=== PATIENT | female | born 1970 | race Two or more races ===

== ENCOUNTER 2016-11-30 11:43 | Emergency (ER) | payer OTHER ==
--- NOTE | 2016-11-30 13:47 | US ---
PELVIC ULTRASOUND HISTORY: Retained IUD. Transabdominal and transvaginal pelvic sonography performed. TRANSABDOMINAL IMAGING UTERINE DIMENSIONS: 7.6 x 4.1 x 4.8 cm. BLADDER: No abnormal filling defect. TRANSVAGINAL IMAGING: ENDOMETRIAL THICKNESS: 5 mm. Shadowing intrauterine device is identified at the lower uterine segment, near the internal cervical os. FOCAL UTERINE LESIONS: Hypoechoic focus at the left anterior fundal region, 2.9 x 2.5 x 2.2 cm, probable leiomyoma. Nabothian cyst formation is noted. RIGHT OVARY: 2.3 x 1.2 x 1.6 cm for a volume of 2.3 cc. LEFT OVARY: 1.6 x 1.6 x 1.3 cm for volume of 1.7 cc. OVARIAN BLOOD FLOW: Documented bilaterally. DOMINANT ADNEXAL LESIONS: No dominant lesion noted. FREE FLUID: None. IMPRESSION: Intrauterine device identified at the lower uterine segment. No dominant adnexal lesion, endometrial thickening, or free fluid. Findings discussed with Dr. Alegre of the Emergency Medicine clinical service on 11/30/16 at 1343 hours.
[2016-11-30 14:18] LABS: ABSOLUTE NEUTROPHIL COUNT 6.8 K/mm3 (1.8-7.7); BASO % 0.4 % (0.2-1.0); EOS # 0.2 (0.0-0.5); EOS % 1.4 % (0.9-2.9); HEMATOCRIT 43.5 % (37.0-47.0); IMM NEUT # 0.1 K/mm3 (0-0.2); IMM NEUT% 0.6 % (0-1); LYMPH # 3.2 (1.0-4.8); LYMPH % 29.5 % (15-45); MEAN CELL VOLUME 84.3 fl (81.0-99.0); MEAN CORPUSCULAR HEMOGLOBIN 27.1 pg (27.0-31.0); MEAN CORPUSCULAR HGB CONC 32.2 g/dl (33.0-37.0); MONO # 0.5 (0.0-0.8); MONO % 4.3 % (4-12); NEUT % 63.8 % (43-75); PLATELET COUNT 280 K/mm3 (130-400); RED CELL DISTRIBUTION WIDTH 12.8 % (11.5-14.5)
[2016-11-30] MEDS ORDERED: KETOROLAC TROMETHAMINE 30 MG/ML 1 ML VIAL ONE (14:27)
[2016-11-30 14:35] LABS: ALBUMIN 4.1 gm/dL (3.5-5.7)
[2016-11-30 15:00] LABS: URINE BILIRUBIN NEGATIVE (NEGATIVE); URINE BLOOD NEGATIVE (NEGATIVE); URINE GLUCOSE (UA) NEGATIVE (NEGATIVE); URINE LEUKOCYTE ESTERASE TRACE (NEGATIVE); URINE NITRITE NEGATIVE (NEGATIVE); URINE PROTEIN NEGATIVE (NEGATIVE); URINE UROBILINOGEN NORMAL (0-1 mg/dl)
[2016-11-30 15:05] LABS: URINE APPEARANCE CLEAR; URINE COLOR YELLOW
[2016-11-30 15:16] LABS: URINE RBC 0-1 /hpf
[2016-11-30 15:17] LABS: URINE EPITHELIAL CELLS 0-1 /hpf
[2016-11-30 15:18] LABS: URINE BACTERIA 1+
== END 2016-11-30 15:49 | disposition home or self-care (01) ==
LOC: ED 11:43
DX: N39.0 Urinary tract infection, site not specified (principal); R53.81 Other malaise; R10.2 Pelvic and perineal pain; N93.9 Abnormal uterine and vaginal bleeding, unspecified
CPT/HCPCS: 84703; 85025; 87086; 80053; 87186; 81001; 76856; 76830; 99283 ×2; 96374; 82962; 51701; J1885

== ENCOUNTER 2017-01-01 08:54 | Day surgery (SDC) | payer OTHER ==
[~2017-01-01 08:54] MED LIST: IV START KIT ONE; LACTATED RINGERS 1,000 ML IV SCH; LACTATED RINGERS 1,000 ML ONE; LIDOCAINE 1% 2 ML VIAL ID PRN
[2017-01-01] MEDS ORDERED: MIDAZOLAM HCL 1 MG/ML 2ML VIAL ONE (11:50)
[2017-01-01] MEDS ORDERED: FENTANYL 250 MCG/5 ML AMP ONE (11:50)
[2017-01-01] MEDS ORDERED: PROPOFOL 20 ML IV ONE (11:50)
[2017-01-01] MEDS ORDERED: PHENYLEPHRINE 10 MG/1 ML (1%) VIAL ONE (13:11)
[2017-01-01] MEDS ORDERED: MEPERIDINE 25 MG/ML SYRINGE IV PRN (13:41)
[2017-01-01] MEDS ORDERED: ONDANSETRON 4 MG/2ML 2 ML VIAL IV PRN ×2 (13:41→14:49)
[2017-01-01] MEDS ORDERED: FENTANYL 100 MCG/2 ML VIAL IV PRN (13:41)
[2017-01-01] MEDS ORDERED: HYDROMORPHONE HCL 1 MG/ML SYRINGE IV PRN (13:41)
[2017-01-01] MEDS ORDERED: PROMETHAZINE HCL 25 MG/ML VIAL IM PRN (13:41)
[2017-01-01] MEDS ORDERED: NALOXONE HCL 0.4 MG/ML VIAL IV PRN (13:41)
[2017-01-01] MEDS ORDERED: ATROPINE SULFATE 0.4 MG/1 ML VIAL IV PRN (13:41)
[2017-01-01] MEDS ORDERED: KETOROLAC TROMETHAMINE 30 MG/ML 1 ML VIAL ONE (13:42)
[2017-01-01] MEDS ORDERED: DEXAMETHASONE SOD PHOS 4 MG/1 ML VIAL ONE (13:42)
[2017-01-01] MEDS ORDERED: LACTATED RINGERS 1,000 ML IV SCH ×2 (13:45→14:49)
[2017-01-01] MEDS ORDERED: GLYCOPYRROLATE 0.2 MG/ML 1ML VIAL ONE (13:53)
[2017-01-01] MEDS ORDERED: NEOSTIGMINE METHYLSULFATE 1 MG/ML DOSE ONE (13:53)
[2017-01-01] MEDS ORDERED: HYDROMORPHONE HCL 1 MG/ML SYRINGE ONE (14:36)
[2017-01-01] MEDS ORDERED: OXYCODONE HCL 5 MG TABLET PO PRN (14:49)
[2017-01-01] MEDS ORDERED: KETOROLAC TROMETHAMINE 30 MG/ML 1 ML VIAL IV PRN (14:49)
[2017-01-01] MEDS ORDERED: ACETAMINOPHEN 325 MG TABLET PO PRN (14:49)
[2017-01-01] MEDS ORDERED: OXYCODONE HCL 5 MG TABLET ONE (15:23)
--- NOTE | 2017-01-01 23:18 | OP ---
CHRISTINA BROWNING [id number] DATE OF SURGERY: 01/01/2017 SURGEON: Dr. Thaddeus Jo PREOPERATIVE DIAGNOSES: 1. Retained IUD fragment. 2. Requested sterilization. POSTOPERATIVE DIAGNOSES: 1. Retained IUD fragment. 2. Requested sterilization. FINDINGS: There were two fragments which appeared to be the short arms of a copper-containing IUD in the intrauterine cavity. They did not appear to be embedded. On laparoscopic examination, the fallopian tubes, ovaries and uterus appeared normal. TECHNICAL PROCEDURE: After induction of satisfactory general anesthesia, the patient was placed in the supine lithotomy position, and prepped and draped in the usual fashion. A weighted speculum was placed in the vagina and the cervix was grasped with a single-tooth tenaculum. The endocervix was dilated using progressively larger Rock dilators to a 29-Albanian. The hysteroscope was introduced and the above findings noted. A grasper was placed through the hysteroscope into the endometrial cavity and the two fragments of the IUD were removed in that fashion. The hysteroscope was then removed and a Hulka tenaculum placed in the cervix. Attention was then turned to the laparoscopic tubal ligation. An infraumbilical incision was made with a 15 knife blade. The direct entry sheath and trocar were introduced under direct vision. The trocar was removed, the laparoscope was introduced and the above findings were noted. Using the Kleppinger bipolar coagulating forceps, the right Fallopian tube was cauterized in the mid isthmic portion in three contiguous areas using the BISHOP current generator at a power setting of six. The same procedure was repeated for the left adnexa. When hemostasis was assured, the laparoscope was removed and the pneumoperitoneum was allowed to escape through the sleeve. The sleeve was then removed and the incision closed with interrupted vertical mattress sutures of 4-0 nylon. The patient tolerated the procedure well and left the operating room awake and in good condition. There were no complications. Instrument and sponge counts were correct. Estimated blood loss was 10 mL. There was no blood replacement. Specimens removed were fragments of an IUD.
--- NOTE | 2017-01-04 13:29 | SURGPATH ---
[facility] [address] [place] [id number] Patient Name: CHRISTINA BROWNING MR#: [id number] : 1970 Gender: F Specimen #: [id number] Collected: 01/01/2017 Received: 01/04/2017 Reported: 01/04/2017 Submitting Phys: CODEY REEVES Copy To Phys: PABLO OTT [facility] Clinical History / Pre-Operative Diagnosis: RETAINED IUD Specimen Source / Surgical Procedure Performed: PORTION OF IUD Interpretation: PORTION OF IUD IDENTIFIED GROSSLY Electronically Signed Out Waldo Jang M.D. Gross Description: The specimen is received fresh labeled with the patient's name and "portion of IUD". Two white-cartwright fragments of plastic material are each 1.7 x 0.2 cm. Each has a central 0.5 cm montalvo apparent metallic sleeve. Demario Vences, P.A. 1: [id number]
== END 2017-01-01 16:08 | disposition home or self-care (01) ==
LOC: SDC 08:54
PROVIDERS: ATTEND Obstetrics & Gynecology
PROC: 0UPD4HZ Removal of Contraceptive Device from Uterus and Cervix, Percutaneous Endoscopic Approach (ICD-10-PCS; principal; 2017-01-01)
PROC: 0U574ZZ Destruction of Bilateral Fallopian Tubes, Percutaneous Endoscopic Approach (ICD-10-PCS; 2017-01-01)
DX: Z30.2 Encounter for sterilization (principal); Z30.432 Encounter for removal of intrauterine contraceptive device; J45.909 Unspecified asthma, uncomplicated; Z79.899 Other long term (current) drug therapy